=== PATIENT | male | born 1995 | race Caucasian/White ===

== ENCOUNTER 2018-12-28 14:36 | Emergency (ER) | payer OTHER, MEDICAID | END 2018-12-28 18:25 | disposition home or self-care (01) | LOC: FTE 14:36 | DX: J34.89 Other specified disorders of nose and nasal sinuses (principal) | CPT/HCPCS: 70140; 99283-25 ==

== ENCOUNTER 2019-01-12 18:19 | Emergency (ER) | payer OTHER ==
[2019-01-12] MEDS: KETOROLAC 30 MG INJ IM (21:41)
[2019-01-12] MEDS: HYDROCODONE/APAP (5/325) TAB PO (21:41)
== END 2019-01-12 22:28 | disposition home or self-care (01) ==
LOC: FTE 18:19
DX: M25.512 Pain in left shoulder (principal)
CPT/HCPCS: 73030; 96372; 99284-25

== ENCOUNTER 2019-02-13 23:01 | Emergency (ER) | payer OTHER ==
[2019-02-14] MEDS: KETOROLAC 30 MG INJ IM (02:22)
== END 2019-02-14 03:00 | disposition home or self-care (01) ==
LOC: FTE 23:01
DX: M62.838 Other muscle spasm (principal)
CPT/HCPCS: 96372; 99284-25

== ENCOUNTER 2019-03-03 18:45 | Emergency (ER) | payer OTHER ==
[2019-03-03] MEDS: KETOROLAC 60 MG INJ IM (21:33)
== END 2019-03-03 23:02 | disposition home or self-care (01) ==
LOC: FTE 23:02
DX: M62.838 Other muscle spasm (principal)
CPT/HCPCS: 72040; 96372; 99284-25

== ENCOUNTER 2019-04-27 17:38 | Emergency (ER) | payer OTHER ==
[2019-04-27] MEDS: KETOROLAC 60 MG INJ IM (19:47)
== END 2019-04-27 20:07 | disposition home or self-care (01) ==
LOC: FTE 17:38
DX: M54.2 Cervicalgia (principal)
CPT/HCPCS: 96372; 99284-25

== ENCOUNTER 2019-05-15 23:10 | Emergency (ER) | payer OTHER ==
[2019-05-16] MEDS: HYDROCODONE/APAP (5/325) TAB PO (03:56)
[2019-05-16] MEDS: KETOROLAC 30 MG INJ IM (03:57)
== END 2019-05-16 04:32 | disposition home or self-care (01) ==
LOC: FTE 05-16 04:32
DX: M54.12 Radiculopathy, cervical region (principal); M62.838 Other muscle spasm
CPT/HCPCS: 96372; 99284-25